=== PATIENT | female | born 2005 | race African-American/Black ===

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

== ENCOUNTER 2024-09-24 06:24 | Emergency (ER) | payer SELFPAY ==
[~2024-09-24] VITALS: Ht 172.7 cm; Wt 104.3 kg
[~2024-09-24 06:24] MED LIST: METO5TAB86 MT; NAPR-1176 MT
[2024-09-24 06:31] VITALS: O2SAT 100
[2024-09-24] MEDS: IBUPROFEN 600MG TABLET PO ONE (07:39)
[2024-09-24] MEDS: MAGNESIUM/ALUMINUM HYDROXIDE/SIMETHICONE 30ML UDC PO ONE (07:39)
[2024-09-24 09:00] VITALS: BP 116/87; PULSE 66; RESP 14; TEMP 37; O2SAT 100
== END 2024-09-24 09:09 | disposition home or self-care (01) ==
LOC: ER 06:46
DX: R07.89 Other chest pain (principal); K21.9 Gastro-esophageal reflux disease without esophagitis
CPT/HCPCS: 71045; 93005; 99283